=== PATIENT | male | born 1945 | race Caucasian/White ===

== ENCOUNTER 2021-11-08 17:02 | Observation (INO) | payer MEDICARE ==
[~2021-11-08] VITALS: Ht 167.6 cm; Wt 89.1 kg
[2021-11-08 17:36] LABS: HEMOGLOBIN 15.1 gm/dl (14.0-17.5); RED BLOOD COUNT 4.75 M/UL (4.20-5.50); WHITE BLOOD COUNT 10.5 K/UL (4.5-11.0)
--- NOTE | 2021-11-09 09:24 | NUR ---
PROVIDER NOTIFIED OF AN ELEVATION OF PATIENT TROPONIN. PATIENT WENT FROM 59.4 UP TO 67.8. PROVIDER NOTIFIED. NO NEW ORDERS RECIEVED. WILL CONTINUTE TO MONITOR.
[2021-11-09] MEDS ORDERED: JANTOVEN4 MG PO (13:55)
[2021-11-09] MEDS ORDERED: WARFARIN SODIUM3 MG PO (13:57)
[2021-11-09] MEDS ORDERED: PLAVIX 75 MG TA75 MG PO (14:02)
[2021-11-09] MEDS ORDERED: COZAAR100 MG PO (14:03)
[2021-11-09] MEDS ORDERED: ISOSORBIDE MONO30 MG PO (14:03)
[2021-11-09] MEDS ORDERED: METOPROLOL SUC100 MG PO (14:04)
[2021-11-09] MEDS ORDERED: FLOMAX 0.4 MG0.4 MG PO (14:04)
[2021-11-10 03:39] LABS: HEMOGLOBIN 13.6 gm/dl (14.0-17.5); RED BLOOD COUNT 4.36 M/UL (4.20-5.50)
[2021-11-10 03:42] LABS: WHITE BLOOD COUNT 7.3 K/UL (4.5-11.0)
[2021-11-10 04:16] LABS: BUN/CREATININE RATIO 19 (0-10)
[2021-11-10] MEDS ORDERED: LOPRESSOR 25 MG25 MG PO (10:08)
[2021-11-10] MEDS ORDERED: LISINOPRIL10 MG PO (10:08)
[2021-11-10] MEDS ORDERED: ATORVASTATIN CA20 MG PO (10:08)
--- NOTE | 2021-11-11 10:02 | NUR ---
TIMELINE OF DISCHARGE ACTIVITY FOR THIS PATIENT, SPOKE WITH RESPIRATORY ABOUT EVENT MONITOR, SPOKE WITH LAND CLASSIFIER TO MAKE SURE THERE WOULD BE NO ISSUE WITH THE PATIENT GOING OUTPATIENT TO GET EVENT MONITOR. CALLED EVENT MONITOR PERSON IN THE OFFICE BUILDING TO ENSURE THEY COULD PLACE IT TODAY. DOUG, THE RT MANAGER WIRELESS GAVE ME HIS NUMBER (SHANDA). HE ASSURED THE PATIET WOULD GET THE MONITOR TODAY. LET DR KEEN KNOW SO HE COULD COME UPDATE THE DISCHARGE AND WRITE AN ORDER FOR THE MONITOR. PATIENT IS NOW BEING DISCHARGED AND KNOWS TO GO STRAIGHT TO THE OFFICE FOR THE MONITOR BEFORE HE GOES HOME.
== END 2021-11-11 10:08 | disposition home or self-care (01) ==
LOC: ER1 17:02 → MED SURG 4 18:40 → CDU 18:40 → MED SURG 4 19:46
PROVIDERS: Physician Assistant Medical; Preventive Medicine Occupational Medicine; ADMIT Internal Medicine Infectious Disease
DX: R55 Syncope and collapse (principal); I10 Essential (primary) hypertension; E78.5 Hyperlipidemia, unspecified; I65.09 Occlusion and stenosis of unspecified vertebral artery; I73.9 Peripheral vascular disease, unspecified; I25.10 Atherosclerotic heart disease of native coronary artery without angina pectoris; N40.0 Benign prostatic hyperplasia without lower urinary tract symptoms; E66.9 Obesity, unspecified; N28.9 Disorder of kidney and ureter, unspecified; M54.50 Low back pain, unspecified; Z95.5 Presence of coronary angioplasty implant and graft; Z87.891 Personal history of nicotine dependence; Z86.73 Personal history of transient ischemic attack (TIA), and cerebral infarction without residual deficits; Z79.01 Long term (current) use of anticoagulants; Z79.02 Long term (current) use of antithrombotics/antiplatelets; Z79.899 Other long term (current) drug therapy
CPT/HCPCS: ECHO; 36415; 70450; 70544; 70551; 71045; 80048; 80053; 80061; 81001; 82550; 82553; 83036; 83690; 84484; 85025; 85027; 85610; 85652; 85730; 86140; 87086; 93005; 93306; 96374; 99285; G0378; J2405

== ENCOUNTER → 2021-11-11 | Outpatient (CLI) | payer MEDICARE ==
[~2021-11-11] MED LIST: ATORVASTATIN CA20 MG PO; COZAAR100 MG PO; FLOMAX 0.4 MG0.4 MG PO; ISOSORBIDE MONO30 MG PO; JANTOVEN4 MG PO; LISINOPRIL10 MG PO; LOPRESSOR 25 MG25 MG PO; METOPROLOL SUC100 MG PO; PLAVIX 75 MG TA75 MG PO; WARFARIN SODIUM3 MG PO
== END ==
LOC: HEART 5 10:45
DX: I67.9 Cerebrovascular disease, unspecified (principal); I25.10 Atherosclerotic heart disease of native coronary artery without angina pectoris; I73.9 Peripheral vascular disease, unspecified